=== PATIENT | male | born 1960 | race Caucasian/White ===

== ENCOUNTER 2017-02-24 22:23 | Emergency (ER) | payer BC ==
[~2017-02-24] VITALS: Ht 182.9 cm; Wt 77.1 kg
[2017-02-24 22:24] VITALS: BP_SYST 155
[2017-02-25] MEDS ORDERED: chlorproMAZINE HCL 50 MG/ 2 ML AMP IM ONE
[2017-02-25] MEDS ORDERED: DIPHENHYDRAMINE INJ 50 MG/ML VIAL IM ONE
[2017-02-25 00:50] VITALS: BP_SYST 122
== END 2017-02-25 00:50 | disposition home or self-care (01) ==
LOC: SED 22:23
DX: R51 Headache (principal); Z85.828 Personal history of other malignant neoplasm of skin
CPT/HCPCS: 96372; 99284; J1200; J3230